=== PATIENT | female | born 1970 | race Caucasian/White ===

== ENCOUNTER 2017-04-06 17:50 | Emergency (ER) | payer MEDICAID ==
[2017-04-06 20:18] VITALS: BP 126/53
[2017-04-06 20:49] LABS: Basophils % (Auto) 1.4 % (0.0-1.8); Eosinophils % (Auto) 8.6 % (0.0-4.3); Hematocrit 37.2 % (30.3-42.9); Hemoglobin 11.9 gm/dl (10.1-14.3); Mean Corpuscular HGB Conc 32 % (30-34); Mean Corpuscular Hemoglobin 27 pg (28-32); Mean Corpuscular Volume 85 fl (79-97); Platelet Count 174 K/mm3 (140-440); Red Cell Distribution Width 17.4 % (13.2-15.2); White Blood Count 8.1 K/mm3 (4.5-11.0)
[2017-04-06 21:02] LABS: Alanine Aminotransferase 15 units/L (7-56); Albumin 3.5 g/dL (3.9-5); Alkaline Phosphatase 85 units/L (35-129); Anion Gap 19 mmol/L; Bilirubin,Total < 0.20 mg/dL (0.1-1.2); Blood Urea Nitrogen 15 mg/dL (7-17); Calcium 8.6 mg/dL (8.4-10.2); Carbon Dioxide 22 mmol/L (22-30); Chloride 102.1 mmol/L (98-107); Glucose 105 mg/dL (65-100); Sodium 139 mmol/L (137-145); Total Protein 7.1 g/dL (6.3-8.2)
== END 2017-04-07 00:50 | disposition left against medical advice (07) ==
LOC: ED 17:50
DX: K92.1 Melena (principal); R10.30 Lower abdominal pain, unspecified; Z53.21 Procedure and treatment not carried out due to patient leaving prior to being seen by health care provider
CPT/HCPCS: 36415; 80053; 85025